=== PATIENT | female | born 1980 | race Two or more races ===

== ENCOUNTER 2022-02-09 18:33 | Emergency (ER) | payer SELFPAY ==
[2022-02-09 18:40] VITALS: BP 132/74; PULSE 116; RESP 20; TEMP 98.4; BMI 28.3
[2022-02-09] MEDS ORDERED: ACETAMINOPHEN 500 MG TABLET (FP) PO ONE (20:06)
[2022-02-09] MEDS ORDERED: IBUPROFEN 600 MG TABLET (FP) PO ONE ×2 (20:06→20:50)
[2022-02-09] MEDS ORDERED: RABIES VACCINE (PCEC)/PF 2.5 UNIT/VIAL IM ONE ×2 (20:36→20:53)
[2022-02-09] MEDS ORDERED: RABIES IMMUNE GLOBULIN 300 UNITS/1 ML VIAL IM ONE (20:36)
[2022-02-09] MEDS ORDERED: ACETAMINOPHEN 500 MG TABLET (FP) ONE (20:51)
[2022-02-09] MEDS ORDERED: RABIES IMMUNE GLOBULIN 300 UNITS/1 ML VIAL ONE ×2 (20:53→21:03)
[2022-02-09] MEDS ORDERED: AMOX TR/POT CLAV 500MG/125MG TABLETS (FP) PO ONE (21:24)
[2022-02-09] MEDS ORDERED: AMOX TR/POT CLAV 500MG/125MG TABLETS (FP) ONE (21:26)
== END 2022-02-09 22:06 | disposition home or self-care (01) ==
LOC: JERFT 18:33
PROC: 3E023GC Introduction of Other Therapeutic Substance into Muscle, Percutaneous Approach (ICD-10-PCS; principal; 2022-02-09)
DX: S61.451A Open bite of right hand, initial encounter (principal); W54.0XXA Bitten by dog, initial encounter
CPT/HCPCS: 90375; 90675; 99283-25

== ENCOUNTER 2022-02-13 09:52 | Emergency (ER) | payer SELFPAY ==
[2022-02-13 09:55] VITALS: BP 111/52; PULSE 79; RESP 18; TEMP 97.8; BMI 29.2
[2022-02-13] MEDS ORDERED: RABIES VACCINE (PCEC)/PF 2.5 UNIT/VIAL IM ONE ×2 (09:55→10:10)
== END 2022-02-13 10:23 | disposition home or self-care (01) ==
LOC: JERFT 09:52
PROC: 3E0234Z Introduction of Serum, Toxoid and Vaccine into Muscle, Percutaneous Approach (ICD-10-PCS; principal; 2022-02-13)
DX: Z20.3 Contact with and (suspected) exposure to rabies (principal)
CPT/HCPCS: 90675; 99283-25

== ENCOUNTER 2022-02-16 07:26 | Emergency (ER) | payer SELFPAY ==
[2022-02-16 07:36] VITALS: BP 103/20; PULSE 76; RESP 16; TEMP 97.9; BMI 29.2
[2022-02-16] MEDS ORDERED: RABIES VACCINE (PCEC)/PF 2.5 UNIT/VIAL IM ONE ×2 (08:10→08:26)
== END 2022-02-16 08:39 | disposition home or self-care (01) ==
LOC: JERFT 07:26
PROC: 3E0234Z Introduction of Serum, Toxoid and Vaccine into Muscle, Percutaneous Approach (ICD-10-PCS; principal; 2022-02-16)
DX: Z29.14 Encounter for prophylactic rabies immune globulin (principal)
CPT/HCPCS: 90675; 99284-25

== ENCOUNTER 2022-03-29 14:31 | Emergency (ER) | payer SELFPAY ==
[2022-03-29 14:56] VITALS: BP 125/72; PULSE 92; RESP 18; TEMP 98; BMI 28.3
[2022-03-29] MEDS ORDERED: SODIUM CHLORIDE 0.9% 500 ML INFUS.BAG IV ONE ×2 (15:53→20:36)
[2022-03-29] MEDS ORDERED: KETOROLAC TROMETHAMINE 30 MG/1 ML VIAL IVPUSH ONE (15:53)
[2022-03-29] MEDS ORDERED: ACETAMINOPHEN 1000 MG/100 ML BAG IVPB ONE (15:53)
[2022-03-29] MEDS ORDERED: ACETAMINOPHEN INJECTION 100 ML IVPB ONE (15:59)
[2022-03-29] MEDS ORDERED: KETOROLAC TROMETHAMINE 30 MG/1 ML VIAL ONE (15:59)
[2022-03-29 16:38] LABS: BASO % 0.2 % (0-2.0); EOS % 0.3 % (0-4.5); HEMATOCRIT 40.9 % (32.4-45.2); HEMOGLOBIN 13.7 GM/dL (10.7-15.3); LYMPH % 7.7 % (8-40); MCH 28.5 pg (25.7-33.7); MCHC 33.6 g/dl (32.0-36.0); MEAN CELL VOLUME 84.9 fl (80-96); MEAN PLT VOLUME 8.4 fl (7.5-11.1); MONO % 5.3 % (3.8-10.2); NEUT % 86.5 % (42.8-82.8); PLATELET COUNT 307 10^3/uL (134-434); RBC 4.82 M/mm3 (3.60-5.2); RDW 13.4 % (11.6-15.6); WHITE BLOOD COUNT 15.5 K/mm3 (4.0-10.0)
[2022-03-29 17:03] LABS: ALBUMIN 3.8 g/dl (3.4-5.0); BLOOD UREA NITROGEN 11.5 mg/dL (7-18); CALCIUM 9.2 mg/dL (8.5-10.1); INR 1.38 (0.83-1.09); PROTHROMBIN TIME (PATIENT) 15.9 SEC (9.7-13.0)
[2022-03-29 17:06] LABS: CREATININE 0.8 mg/dL (0.55-1.3)
[2022-03-29 17:07] LABS: BILIRUBIN,TOTAL 0.8 mg/dL (0.2-1); TOT PROT 7.7 g/dl (6.4-8.2)
[2022-03-29 18:24] LABS: EPI CELLS >36 /uL (0-25.1); HYALINE CASTS 5 /uL (0-3.1); PH,URINE 5.5 (5.0-8.0); URINE APPEARANCE CLEAR; URINE BACTERIA 271 /uL (0-1359); URINE BILIRUBIN NEGATIVE (NEGATIVE); URINE COLOR DK YELLOW; URINE GLUCOSE (UA) NEGATIVE (NEGATIVE); URINE KETONE 2+ (NEGATIVE); URINE LEUK ESTERASE NEGATIVE (NEGATIVE); URINE NITRITE NEGATIVE (NEGATIVE); URINE PROTEIN 1+ (NEGATIVE); URINE UROBILINOGEN 0.2 mg/dL (0.2-1.0); URINE WBC 34 /uL (0-25.8)
[2022-03-29 18:26] LABS: URINE RBC 35 /uL (0-23.9)
[2022-03-29 18:31] LABS: HCG,QUALITATIVE URINE Negative
[2022-03-29] MEDS ORDERED: morphine CARPU-JECT 2 MG/1 ML DISP.SYRIN IVPUSH ONE (18:47)
[2022-03-29] MEDS ORDERED: ONDANSETRON 4 MG/2 ML VIAL IVPUSH ONE (18:47)
[2022-03-29] MEDS ORDERED: ONDANSETRON 4 MG/2 ML VIAL ONE (19:06)
== END 2022-03-29 22:34 | disposition home or self-care (01) ==
LOC: JER 14:31
PROC: 3E0333Z Introduction of Anti-inflammatory into Peripheral Vein, Percutaneous Approach (ICD-10-PCS; principal; 2022-03-29)
PROC: 3E0333Z Introduction of Anti-inflammatory into Peripheral Vein, Percutaneous Approach (ICD-10-PCS; 2022-03-29)
PROC: 3E033NZ Introduction of Analgesics, Hypnotics, Sedatives into Peripheral Vein, Percutaneous Approach (ICD-10-PCS; 2022-03-29)
PROC: 3E033GC Introduction of Other Therapeutic Substance into Peripheral Vein, Percutaneous Approach (ICD-10-PCS; 2022-03-29)
DX: J02.0 Streptococcal pharyngitis (principal)
CPT/HCPCS: 36415; 74177-TC; 80053; 81003; 84703; 85025; 85610; 87086; 87651; 93005; 93010; 99285-25; Q9967